=== PATIENT | male | born 1995 | race American Indian/Alaskan Native ===

== ENCOUNTER 2021-06-06 06:07 | Emergency (ER) | payer SELFPAY ==
--- NOTE | 2021-06-06 06:24 | Emergency Department Report ---
ED Psych HPI - General Stated Complaint: PT REPORTED SI TO [facility]. Time Seen by Provider: 06/06/21 06:20 Source: patient, EMS - History of Present Illness Initial Comments: Patient is 25 years old male with no previous psychiatric diagnosis. Patient brought to the emergency room via EMS for mental health evaluation. EMS stated that has been called by crisis center to take the patient to the ER for suicidal ideation. Patient stated that he is having trouble with. 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 He admitted auditory and visual hallucination. He denied any drug abuse. Patient denied homicidal ideation. Patient stated that he was admitted before inpatient psychiatric facility but he does not know the reason for that. MD Complaint: suicidal ideation -: Last night Associated Psychiatric Symptoms: suicidal ideation, auditory hallucinations, visual hallucinations Quality: constant Associated Symptoms: denies other symptoms Treatments Prior to Arrival: none - Related Data Allergies Allergy/AdvReac Type Severity Reaction Status Date / Time No Known Allergies Allergy Unverified 06/06/21 08:25 ED Review of Systems ROS: Stated complaint: PT REPORTED SI TO [facility]. Other details as noted in HPI Comment: All other systems reviewed and negative Constitutional: denies: chills, fever Respiratory: denies: cough, shortness of breath, SOB with exertion Cardiovascular: denies: chest pain, palpitations Musculoskeletal: denies: back pain Neurological: denies: headache, weakness, numbness, paresthesias, confusion Psychiatric: depression, auditory hallucinations, visual hallucinations, suicidal thoughts. denies: homicidal thoughts ED Physical Exam - General General appearance: alert, anxious - Head Head exam: Present: atraumatic, normocephalic, normal inspection - Eye Eye exam: Present: normal appearance - ENT ENT exam: Present: normal exam, normal orophraynx, mucous membranes moist - Neck Neck exam: Present: normal inspection, full ROM. Absent: tenderness, meningismus - Respiratory Respiratory exam: Present: normal lung sounds bilaterally - Cardiovascular Cardiovascular Exam: Present: regular rate, normal rhythm, normal heart sounds - GI/Abdominal GI/Abdominal exam: Present: soft, normal bowel sounds. Absent: distended, tenderness, guarding, rebound, rigid, organomegaly, mass, bruit, pulsatile mass, hernia - Extremities Exam Extremities exam: Present: normal inspection, full ROM, normal capillary refill. Absent: tenderness, pedal edema, joint swelling, calf tenderness - Back Exam Back exam: Present: normal inspection, full ROM. Absent: CVA tenderness (R), CVA tenderness (L) - Neurological Exam Neurological exam: Present: alert, oriented X3, CN II-XII intact, normal gait, reflexes normal. Absent: motor sensory deficit - Psychiatric Psychiatric exam: Present: anxious, suicidal ideation. Absent: homicidal ideation - Skin Skin exam: Present: warm, intact, normal color ED Course Vital Signs 06/06/21 06:36 Temperature 97.6 F Pulse Rate 73 Respiratory 18 Rate Blood Pressure 133/75 [Right] O2 Sat by Pulse 99 Oximetry ED Medical Decision Making - Lab Data Result diagrams: 06/06/21 06:41 06/06/21 06:41 Critical care attestation.: If time is entered above; I have spent that time in minutes in the direct care of this critically ill patient, excluding procedure time. ED Disposition Clinical Impression: Suicidal ideation Disposition: 01 HOME / SELF CARE / HOMELESS Is pt being admited?: No Condition: Stable Referrals: PRIMARY CARE, [Primary Care Provider] - 3-5 Days
[2021-06-06 06:40] VITALS: BP 133/75
[2021-06-06 07:06] LABS: Basophils % (Auto) 0.2 % (0.0-1.8); Eosinophils # (Auto) 0.1 K/mm3 (0.0-0.4); Eosinophils % (Auto) 0.6 % (0.0-4.3); Hemoglobin 14.5 gm/dl (11.8-15.2); Lymphocytes # (Auto) 1.2 K/mm3 (1.2-5.4); Lymphocytes % (Auto) 10.9 % (13.4-35.0); Mean Corpuscular HGB Conc 32 % (32-34); Mean Corpuscular Volume 88 fl (84-94); Monocytes # (Auto) 0.8 K/mm3 (0.0-0.8); Monocytes % (Auto) 6.9 % (0.0-7.3); Platelet Count 264 K/mm3 (140-440); Red Blood Count 5.12 M/mm3 (3.65-5.03); Red Cell Distribution Width 15.1 % (13.2-15.2)
[2021-06-06 07:20] LABS: BUN/Creatinine Ratio 20; Blood Urea Nitrogen 16 mg/dL (9-20); Calcium 9.4 mg/dL (8.4-10.2); Hemolysis Index 15
--- NOTE | 2021-06-06 11:10 | Consultation ---
History of Present Illness - Reason for Consult Consult date: 06/06/21 Reason for consult: suicidal ideation - History of Present Psychiatric Illness ED Note: Patient is 25 years old male with no previous psychiatric diagnosis. Patient brought to the emergency room via EMS for mental health evaluation. EMS stated that has been called by crisis center to take the patient to the ER for suicidal ideation. Patient stated that he is having trouble with. 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 He admitted auditory and visual kalina lucination. He denied any drug abuse. Patient denied homicidal ideation. Patient stated that he was admitted before inpatient psychiatric facility but he does not know the reason for that. Baljinder Galaviz is a 25 year old male with unknown psychiatric diagnosis. The patient is calm and oriented x 2. The patient is unable to states why he came to the ED stating " I thought I needed to be alone." He does not remember prior diagnosis but states he stopped taking medications about 2 years ago; he is unable to recall what meds he was on. The patient denies being depressed or having excessive nervousness. The patient denies any current suicidal ideation and denies hallucinations. PAST PSYCHIATRIC HISTORY: Diagnoses: Denies Suicide attempts or Self-harm behavior: Denies Prior psychiatric hospitalizations: Denies Substance Abuse history: Denies Previous psychiatric medications tried:denies Outpatient treatment:unknown PAST MEDICAL HISTORY: Family Psychiatric History: None reported or documented SOCIAL HISTORY Marital Status: Single Living Arrangements: Homeless Employment Status:unemployed Access to guns/weapons: Yes Education: 12th grade History of Abuse: n/a Legal History:Unknown REVIEW OF SYSTEMS Constitutional: Negative for weight loss ENT: Negative for stridor Respiratory: Negative for cough or hemoptysis All other systems reviewed and are negative MENTAL STATUS EXAMINATION General Appearance and Behavior: Age appropriate, good hygiene, wearing appropriate clothes, uncooperative polite with questioning. Cooperation: cooperative Psychomotor Behavior: Psychomotor agitation Mood:"Ok" Affect and affective range:congruent Thought Process:goal directed Thought Content: Speech:Normal Intellectual Functioning: Average Suicidal Ideation:Denies Homicidal Ideation: Denies Hallucination: Denies Impulse Control:Questionable Insight and Judgment:limited insight and poor judgment Memory: Intact Attention:Distractible Orientation: Alert and oriented Diagnoses: 1 1013 Treatment Plan: Continue - Home Medications. Patient should be compliant with medications and not to use drugs and not to dri nk alcohol. PSYCHOTHERAPY: Supportive psychotherapy provided MEDICAL: Per primary team DELIRIUM PRECAUTIONS: Please re-orient patient frequently, keep lights on during the day, and minimize benzodiazepines and opiates as these medications could worsen patient's confusion. 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 Thank you for the consult. Please contact with any questions and/or concerns. Medications and Allergies Medications and Allergies Allergies Allergy/AdvReac Type Severity Reaction Status Date / Time No Known Allergies Allergy Unverified 06/06/21 08:25 Mental Status Exam - Vital signs Last Vital Signs Temp 97.6 F 06/06/21 06:36 Pulse 73 06/06/21 06:36 Resp 18 06/06/21 06:36 BP 133/75 06/06/21 06:36 Pulse Ox 99 06/06/21 06:36 Results Result Diagrams: 06/06/21 06:41 06/06/21 06:41 Abnormal lab results 06/06/21 06/06/21 06/06/21 Range/Units 06:41 06:41 06:41 WBC 11.1 H (4.5-11.0) K/mm3 RBC 5.12 H (3.65-5.03) M/mm3 Lymph % (Auto) 10.9 L (13.4-35.0) % Seg Neutrophils % 81.4 H (40.0-70.0) % Seg Neutrophils # 9.0 H (1.8-7.7) K/mm3 Sodium 136 L (137-145) mmol/L Glucose 70 L (75-100) mg/dL Salicylates < 0.3 L (2.8-20.0) mg/dL Acetaminophen (10.0-30.0) ug/mL 06/06/21 Range/Units 06:41 WBC (4.5-11.0) K/mm3 RBC (3.65-5.03) M/mm3 Lymph % (Auto) (13.4-35.0) % Seg Neutrophils % (40.0-70.0) % Seg Neutrophils # (1.8-7.7) K/mm3 Sodium (137-145) mmol/L Glucose (75-100) mg/dL Salicylates (2.8-20.0) mg/dL Acetaminophen 5.0 L (10.0-30.0) ug/mL All other labs normal.
== END 2021-06-06 16:20 | disposition home or self-care (01) ==
LOC: ED 06:07
DX: R44.0 Auditory hallucinations (principal); R44.1 Visual hallucinations; R45.851 Suicidal ideations
CPT/HCPCS: 36415; 80048; 80320; 85025; 99283; G0480